=== PATIENT | female | born 1975 | race Caucasian/White ===

== ENCOUNTER → 2016-03-14 | Outpatient (CLI) | payer BC ==
[~2016-03-14] MED LIST: NORCO 325 MG-51 TAB PO; SYNTHROID 0.10.15 MG PO; VYVANSE30 MG PO
== END ==
LOC: BHSO 15:25
DX: F90.0 Attention-deficit hyperactivity disorder, predominantly inattentive type (principal)

== ENCOUNTER → 2016-05-09 | Outpatient (CLI) | payer BC | LOC: BHSO 09:42 | DX: F90.0 Attention-deficit hyperactivity disorder, predominantly inattentive type (principal) ==

== ENCOUNTER → 2016-10-15 | Outpatient (CLI) | payer BC | LOC: BHSO 09:20 | DX: F90.0 Attention-deficit hyperactivity disorder, predominantly inattentive type (principal) ==

== ENCOUNTER → 2016-11-12 | Outpatient (CLI) | payer BC | LOC: BHSO 09:19 | DX: F90.0 Attention-deficit hyperactivity disorder, predominantly inattentive type (principal) ==